=== PATIENT | female | born 1985 | race African-American/Black ===

== ENCOUNTER 2021-03-07 11:53 | Emergency (ER) | payer MEDICAID ==
[~2021-03-07] VITALS: Ht 165.1 cm; Wt 91.0 kg
[~2021-03-07 11:53] MED LIST: NO MEDS
[2021-03-07] MEDS ORDERED: OLAN5TAB3 PO (12:02)
[2021-03-07] MEDS ORDERED: HYDR-3782 GT (12:02)
[2021-03-07] MEDS ORDERED: LORAZEPAM 0.5MG TABLET PO ONE (12:30)
[2021-03-07] MEDS ORDERED: LORA-249 MT (13:33)
[2021-03-07 15:13] LABS: CHLORIDE 107 mEq/L (98-107)
[2021-03-07 15:14] LABS: BASOPHILS % 0.6 % (0.0-2.0); EOSINOPHILS % 0.6 % (0.0-5.0); HEMATOCRIT. 41.9 % (36.0-48.0); HEMOGLOBIN. 13.6 g/dL (12.0-16.0); MEAN CORPUSCULAR HEMOGLOBIN 28.1 pg (28.0-32.0); MEAN CORPUSCULAR VOLUME 86.6 fL (81.0-99.0); MEAN PLATELET VOLUME 7.7 fl (7.4-10.4); MONOCYTES % 9.3 % (2.0-8.0); NEUTROPHILS % 68.5 % (40.0-76.0); PLATELET 321 x1000/uL (130-400); RED BLOOD CELL COUNT 4.84 mill/uL (4.2-5.4)
[2021-03-07 15:16] LABS: ETHANOL BLOOD < 10 mg/dL
[2021-03-07] MEDS ORDERED: HYDROXYZINE 10 MG TABLET PO PRN (15:30)
[2021-03-07 15:34] LABS: HCG SCREEN NEGATIVE
[2021-03-07] MEDS: OLANZAPINE 5MG TABLET PO SCH ×2 (20:25→20:28)
[2021-03-08] MEDS ORDERED: HALOPERIDOL LACTATE 5MG/ML VIAL IM ONE
[2021-03-08 10:59] VITALS: BP 118/80
== END 2021-03-08 11:01 | disposition home or self-care (01) ==
LOC: ER 11:56
DX: F41.9 Anxiety disorder, unspecified (principal); R45.851 Suicidal ideations; F12.10 Cannabis abuse, uncomplicated; Z20.822 Contact with and (suspected) exposure to COVID-19
CPT/HCPCS: 36415; 80053; 80307; 80320; 80329; 81025; 84703; 85025; 87426; 96372; 99285; G0480